=== PATIENT | female | born 2005 | race Caucasian/White ===

== ENCOUNTER 2024-05-22 15:26 | Emergency (ER) | payer MEDICAID ==
[~2024-05-22] VITALS: Ht 154.9 cm; Wt 59.1 kg
[2024-05-22 15:28] VITALS: TEMP 98
[2024-05-22 16:02] LABS: APPEARANCE,URINE HAZY (CLEAR); BILIRUBIN,URINE SMALL (NEGATIVE); COLOR,URINE DARK YELLOW (YELLOW); GLUCOSE, URINE (UA) NEGATIVE (NEGATIVE); KETONES,URINE 40-60 mg/dL (NEGATIVE); LEUKOCYTE ESTERASE ,URINE LARGE (NEGATIVE); NITRATE,URINE NEGATIVE (NEGATIVE); OCCULT BLOOD,URINE SMALL (NEGATIVE); PROTEIN,URINE 30-70 mg/dL (NEGATIVE); SPECIFIC GRAVITIY, URINE 1.028 (1.003-1.030); UROBILINOGEN,URINE <=1.0 mg/dL (<=1.0)
[2024-05-22 16:09] LABS: BACTERIA,URINE Few /HPF (None Seen); SQUAMOUS EPITHELIAL CELL,UR Few /LPF (None Seen); WBC,URINE 51-100 /HPF (0-5)
[2024-05-22] MEDS ORDERED: CEPHALEXIN MONOHYDRATE 500 MG CAPSULE PO ONE (16:30)
[2024-05-22 16:40] VITALS: BP 128/70; PULSE 98; RESP 18
[2024-05-22] MEDS ORDERED: VALA500T PO (16:44)
[2024-05-22] MEDS ORDERED: TRAM50TA5 PO (16:44)
[2024-05-22] MEDS: AZITHROMYCIN 500 MG TABLET PO ONE (16:46)
[2024-05-22] MEDS: TraMADol HCL 50 MG TABLET PO ONE (16:46)
[2024-05-22] MEDS: LIDOCAINE/PF 1% 2 ML VIAL IM ONE (16:46)
[2024-05-22] MEDS: CefTRIAXone SODIUM 1 GM/VIAL IM ONE (16:46)
[2024-05-22] MEDS ORDERED: LIDO35.422 TP (16:51)
== END 2024-05-22 17:03 | disposition home or self-care (01) ==
LOC: EMS 15:26
DX: B00.9 Herpesviral infection, unspecified (principal)
CPT/HCPCS: 99283; 81001; 84703; 87186; 96372; J0696; J3490; Q9967; 87086; 87491; 87591

== ENCOUNTER 2025-07-03 15:12 | Emergency (ER) | payer SELFPAY ==
[~2025-07-03] VITALS: Ht 154.9 cm; Wt 63.6 kg
[~2025-07-03 15:12] MED LIST: LIDO35.422 TP; TRAM50TA5 PO; VALA500T PO
[2025-07-03 15:14] VITALS: BP 127/78; PULSE 121; RESP 18; TEMP 98.1; O2SAT 97
[2025-07-03] MEDS: CEPHALEXIN MONOHYDRATE 500 MG CAPSULE PO ONE (17:50)
[2025-07-03] MEDS: ONDANSETRON HCL 4 MG/2 ML VIAL IM ONE (17:50)
[2025-07-03] MEDS: DOXYCYCLINE HYCLATE 100 MG TABLET PO ONE (17:50)
[2025-07-03] MEDS: LIDOCAINE 1% 10 ML VIAL SQ ONE (17:51)
[2025-07-03] MEDS ORDERED: IBUP-1554 PO (18:23)
[2025-07-03] MEDS ORDERED: HYDR-4062 PO (18:23)
[2025-07-03] MEDS ORDERED: DOXY-354 PO (18:23)
[2025-07-03] MEDS ORDERED: CEPH-558 PO (18:23)
[2025-07-03] MEDS ORDERED: ACET-66 PO (18:28)
== END 2025-07-03 18:45 | disposition home or self-care (01) ==
LOC: EMS 15:12
DX: L05.01 Pilonidal cyst with abscess (principal); Z79.624 Long term (current) use of inhibitors of nucleotide synthesis; Z79.899 Other long term (current) drug therapy; X58.XXXA Exposure to other specified factors, initial encounter; Y93.89 Activity, other specified; Y92.89 Other specified places as the place of occurrence of the external cause; Y99.8 Other external cause status
CPT/HCPCS: 10080; 99284; 96372; J1171; J2405; J3490

== ENCOUNTER 2025-07-05 13:10 | Emergency (ER) | payer SELFPAY ==
[~2025-07-05] VITALS: Ht 154.9 cm; Wt 63.6 kg
[~2025-07-05 13:10] MED LIST changes: +ACET-66 PO; +CEPH-558 PO; +DOXY-354 PO; +HYDR-4062 PO; +IBUP-1554 PO
[2025-07-05] MEDS: ONDANSETRON 4 MG TABLET PO ONE (14:04)
[2025-07-05 14:55] VITALS: BP 114/76; PULSE 99; RESP 15; TEMP 97.3; O2SAT 98
== END 2025-07-05 15:08 | disposition home or self-care (01) ==
LOC: EMS 13:25
DX: L05.01 Pilonidal cyst with abscess (principal); Z79.624 Long term (current) use of inhibitors of nucleotide synthesis; Z79.899 Other long term (current) drug therapy
CPT/HCPCS: 99283; Q0162

== ENCOUNTER → 2025-07-07 | Emergency (ER) | payer SELFPAY ==
[~2025-07-07] VITALS: Ht 154.9 cm; Wt 63.6 kg
[~2025-07-07] MED LIST changes: -TRAM50TA5 PO
[2025-07-07 19:45] VITALS: BP 128/67; PULSE 76; RESP 18; TEMP 97.9; O2SAT 99
== END | disposition still patient (30) ==
LOC: EMS 18:02
DX: L05.01 Pilonidal cyst with abscess (principal); Z79.899 Other long term (current) drug therapy
CPT/HCPCS: 99281; Z7502

== ENCOUNTER 2025-08-13 15:12 | Emergency (ER) | payer OTHER ==
[~2025-08-13] VITALS: Ht 154.9 cm; Wt 63.6 kg
[~2025-08-13 15:12] MED LIST changes: -HYDR-4062 PO; -LIDO35.422 TP; -VALA500T PO
[2025-08-13 15:24] VITALS: TEMP 98.6
[2025-08-13 18:36] VITALS: BP 124/89; PULSE 116; RESP 16; O2SAT 98
[2025-08-13] MEDS: CEPHALEXIN MONOHYDRATE 500 MG CAPSULE PO ONE (20:19)
[2025-08-13] MEDS: DOXYCYCLINE HYCLATE 100 MG TABLET PO ONE (20:19)
[2025-08-13] MEDS: IBUPROFEN 600 MG TABLET PO ONE (20:19)
[2025-08-13] MEDS: LIDOCAINE 1% 10 ML VIAL SQ ONE (20:20)
[2025-08-13] MEDS ORDERED: HYDR-4062 PO (21:11)
[2025-08-13] MEDS ORDERED: CLIN300C58 PO (21:11)
== END 2025-08-13 21:35 | disposition home or self-care (01) ==
LOC: EMS 15:12
DX: L05.01 Pilonidal cyst with abscess (principal); Z79.899 Other long term (current) drug therapy
CPT/HCPCS: 10080; 99284; 96372; J1200; J1171; J3490

== ENCOUNTER → 2025-08-16 | Emergency (ER) | payer OTHER ==
[~2025-08-16] VITALS: Ht 154.9 cm; Wt 64.0 kg
[~2025-08-16] MED LIST changes: +CLIN300C58 PO; +HYDR-4062 PO
[2025-08-16 13:17] VITALS: BP 103/57; PULSE 84; RESP 18; TEMP 98.1; O2SAT 96
== END | disposition still patient (30) ==
LOC: EMS 13:30
DX: L05.01 Pilonidal cyst with abscess (principal); Z79.899 Other long term (current) drug therapy; Z48.817 Encounter for surgical aftercare following surgery on the skin and subcutaneous tissue
CPT/HCPCS: 99281; Z7502

== ENCOUNTER 2025-08-20 14:23 | Emergency (ER) | payer OTHER ==
[~2025-08-20] VITALS: Ht 154.9 cm; Wt 63.6 kg
[2025-08-20 14:27] VITALS: TEMP 98
[2025-08-20 18:11] VITALS: BP 119/56; PULSE 84; RESP 18; O2SAT 99
[2025-08-20] MEDS ORDERED: CLIN-142 PO (18:31)
== END 2025-08-20 18:41 | disposition home or self-care (01) ==
LOC: EMS 14:23
DX: L05.01 Pilonidal cyst with abscess (principal); Z79.899 Other long term (current) drug therapy
CPT/HCPCS: 99283; Z7502